=== PATIENT | female | born 1985 | race Caucasian/White ===

== ENCOUNTER 2021-02-25 13:02 | Outpatient (CLI) | payer BC, SELFPAY ==
[2021-02-25 20:07] LABS: Hematocrit 42.7 % (37.0-47.0); Hemoglobin 13.5 g/dL (12.0-15.0); Mean Corpuscular HGB Conc 31.6 g/dl (32-36); Mean Corpuscular Hemoglobin 28.7 pg (26-34); Mean Corpuscular Volume 90.9 fl (80-100); Mean Platelet Volume 10.3 fl (7.4-10.4); Platelet Count Result 376 k/mm3 (150-375); Red Cell Distribution Width 12.6 % (11.5-14.5); White Blood Count 6.6 K/mm3 (4.5-10.0)
== END 2021-02-25 13:03 | disposition home or self-care (01) ==
PROVIDERS: PCP Physician Assistant; Visit Provider Obstetrics & Gynecology
DX: N92.1 Excessive and frequent menstruation with irregular cycle (principal)
CPT/HCPCS: 36415; 84443; 85027

== ENCOUNTER 2021-04-07 00:23 | Day surgery (SDC) | payer BC, SELFPAY ==
[2021-03-31 14:16] VITALS: BMI 24.3
--- NOTE | 2021-04-04 16:21 | PM.IMHP ---
H&P: HPI History of Present Illness Date/Time: 04/04/21 16:21 35 y/o G0 with irregular frequent bleeding and severe cramping after endometrial ablation. OCP and depo provera did not help Chief Complaint: Irregular bleeding, cramping Review of Systems Review of Systems: All systems reviewed & are unremarkable except as noted in HPI and below PMFSH Surgical History Surgical History History of bilateral salpingectomy History of breast surgery 1 mass removed from right breast and 2 masses removed from left breast, benign, followed at [facility], will start mammograms at age 35 All ducts removed History of dilation and curettage History of endometrial ablation Family History Family History Other Breast cancer aunt Diabetes mellitus aunt Ovarian cancer aunt and cousin ALS (amyotrophic lateral sclerosis) uncle Mother Hypertension Hypercholesteremia Grandparent Stomach cancer Father Larynx cancer Social History Social History Smoking status: Never smoker Alcohol intake: current Alcohol use details: ONCE A MONTH Substance use: never Spiritual care concerns: No Meds Home Medications and Allergies Home Medications Medication Instructions Recorded Confirmed Type ascorbic acid (vitamin C) 500 mg 500 mg PO DAILY 07/30/20 03/31/21 History capsule,extended release multivitamin 1 tablet PO DAILY 07/30/20 03/31/21 History vitamin E 200 unit capsule 200 unit PO DAILY 07/30/20 03/31/21 History zinc 50 mg tablet 50 mg PO DAILY 03/31/21 03/31/21 History Allergies Allergy/AdvReac Type Severity Reaction Status Date / Time hydrocodone AdvReac Severe Nausea and Verified 03/31/21 14:15 Vomiting Exam Const: General: healthy appearing, no acute distress, alert and awake Resp: Auscultation: clear to auscultation bilaterally Cardio: Rate: regular rate Rhythm: regular rhythm GI: Inspection: non-distended GI Palp: Yes Soft to palpation and No Tenderness to palpation present (GI) : Bimanual exam- vagina & uterus: normal bimanual exam, uterine size normal, uterine mobility normal, non-tender and soft Bimanual Exam- Adnexa, other: normal adnexae, no masses and No adnexal tenderness Extrem: General: no pedal edema and no calf tenderness Psych: Mental Status: mental status grossly normal Assessment and Plan Assessment and plan (1) Menometrorrhagia: Code(s): N92.1 - Excessive and frequent menstruation with irregular cycle Status: Acute Assessment and Plan: She opted and signed consent for TLH after risks, benefits, complications, and alternatives discussed. She is already s/p bilateral salpingectomy. We're planning to leave ovaries in place assuming they look normal. Se did have 1 cm left ovarian cyst on recent u/S (2) Pelvic pain: Code(s): R10.2 - Pelvic and perineal pain Status: Acute
[2021-04-07] VITALS (9 sets, daily range): BP systolic 105–122; BP diastolic 48–82; PULSE 70–94; RESP 12–18; TEMP 36.5–36.7; O2SAT 98–100
--- NOTE | 2021-04-07 10:20 | WPDANESEPPF ---
Anes - Initial Pre Proc Eval Procedure: Operation Date: 04/07/21 12:00 Proposed Procedures p Total Laparoscopic Hysterectomy - Monisha Ch MD Date/Time: 04/07/21 10:20 Surgeon: Monisha Ch MD Pre Op Diagnosis: menometrrohaghia, dysmenorrhea Patient Data Age: 35 Gender: F Height: 1.73 m Weight: 72.5 kg Allergies Allergy/AdvReac Type Severity Reaction Status Date / Time hydrocodone AdvReac Severe Nausea and Verified 03/31/21 14:15 Vomiting Home Medications Medication Instructions Recorded Confirmed Type ascorbic acid (vitamin C) 500 mg 500 mg PO DAILY 07/30/20 03/31/21 History capsule,extended release multivitamin 1 tablet PO DAILY 07/30/20 03/31/21 History vitamin E 200 unit capsule 200 unit PO DAILY 07/30/20 03/31/21 History zinc 50 mg tablet 50 mg PO DAILY 03/31/21 03/31/21 History Patient hx anesthesia problems: none Family hx anesthesia problems: none Results Review: All pre-operative results and documents have been reviewed as part of the pre-operative evaluation. [facility] Surgical History Surgical History History of bilateral salpingectomy History of breast surgery 1 mass removed from right breast and 2 masses removed from left breast, benign, followed at [facility], will start mammograms at age 35 All ducts removed History of dilation and curettage History of endometrial ablation Family History Family History Other Breast cancer aunt Diabetes mellitus aunt Ovarian cancer aunt and cousin ALS (amyotrophic lateral sclerosis) uncle Mother Hypertension Hypercholesteremia Grandparent Stomach cancer Father Larynx cancer Social History Social History Smoking status: Never smoker Alcohol intake: current Alcohol use details: ONCE A MONTH Substance use: never Living arrangements: with family Spiritual care concerns: No Anes - Eval Final PreProcedure Day of Procedure 04/07/21 10:20 Patient weight: normal Heart: regular rate and rhythm Lungs: clear to auscultation Airway: Mallampati scale class II Neurological: alert and oriented Last oral intake: >/= 8 hours ASA classification: I Emergent: no Anesthetic plan: proceed Anesthesia type and monitoring: general ETT and standard monitoring Results Review: All pre-operative results and documents have been reviewed as part of the pre-operative evaluation. Informed Consent: The patient's anesthetic plan and its attendant risks and benefits were discussed with the patient/family/POA. Questions were solicited and answers provided to the satisfaction of the patient/family/POA.
[2021-04-07] MEDS: ACETAMINOPHEN 500 MG TABLET 1000 MG PO (10:30)
[2021-04-07] MEDS: LACTATED RINGERS 1,000 ML 30 ML IV CONT ×2 (10:31→16:29)
[2021-04-07] MEDS: KETOROLAC 15 MG/ML VIAL (*BKC) IV PUSH (10:31)
--- NOTE | 2021-04-07 11:47 | WPDHPUPDATE1 ---
History and Physical Update Update Date/Time: 04/07/21 11:47 History and Physical has been reviewed, including an updated exam of the patient. There are NO changes in the patient's condition. Risks, benefits, and alternatives have been discussed and questions answered. Patient agrees to proceed with procedure.
[2021-04-07] MEDS: ceFAZolin 2 GM/D5W 50 ML 2 GM/50 ML BAG IVPB (11:58)
--- NOTE | 2021-04-07 12:03 | W.PM.PROC2 ---
Procedure Note - Detailed Date of Procedure 04/07/21 Pre-op Diagnosis menometrorrhagia, dysmenorrhea Post-op Diagnosis other (menometrorrhagia, dysmenorrhea, intraoperative cystotomy) Procedure Performed [facility] Surgeon Monisha Ch MD Anesthesia general Indications Severe cramping after endometrial ablation, and irregular frequent bleeding despite multiple hormonal therapies Findings normal uterus, absent fallopian tubes, normal ovaries with 1-2 cm serous filled left ovarian cyst / follicle; normal appendix, liver, gall bladder. 3 mm cystotomy repaired laparoscopically but different 5-6 mm laceration created while tying the sutures Description of Procedure She was taken to the operating room where general anesthesia was obtained. She was prepared and draped in the normal sterile fashion in dorsal lithotomy position. Marcaine was injected infraumbilically. A 5 mm infraumbilical incision was made with a scalpel, and a 5 mm nonbladed trocar was placed with the camera in the trocar under direct visualization into the peritoneal cavity. Insufflation was begun she was placed in Trendelenburg. A 10 mm trocar was placed in the right lower quadrant under direct visualization. A 5 mm trocar was placed in the left lower quadrant under direct visualization. Inspection of the pelvis revealed the findings as noted above. The right round ligament was clamped transected with the Harmonic scalpel. The utero-ovarian ligament was then divided on the right side. The bladder flap was then created from the right side. The left he round ligament was then grasped coagulated and transected, as was the left utero-ovarian ligament. The bladder flap was created from the left side meeting the flap from the right. The bladder was pushed down further with the laparoscopic Kittner. The bladder was dissected off the uterus further and using the Harmonic scalpel and then pushed down once again with the Kittner. The left uterine artery was skeletonized, clamped, coagulated, and transected using the Harmonic scalpel with excellent hemostasis visualized. Several more bites were taken down the broad ligament to the level of the uterosacral ligament had been reached. The right uterine artery was then clamped coagulated and transected. Several more bites were taken down the broad ligament to the level of the uterosacral ligament had been reached. The uterosacral ligaments were then divided on both sides. A sponge stick was placed in the vagina and pressed against the anterior cul-de-sac. A colpotomy incision was made against the sponge stick. The vagina was then circumferentially incised hugging against the cervix. Once the uterus insert cervix were completely free of the surrounding vaginal tissue, the cervix and uterus were passed down as far as possible into the vaginal canal. Attention was then turned to the vagina. Speculum was placed in the vagina. The cervix was easily visible and grasped with a single-tooth tenaculum. Gentle traction was able to remove the uterus easily. A moist blue towel was then placed in the vagina to help hold the pneumoperitoneum. Attention was then turned back to the abdomen. The vaginal cuff was irrigated and inspected with hemostasis noted. There was a small defect anterior to the vaginal cuff that upon further inspection was obvious to be a small approximately 3 mm cystotomy. The Francois bulb was visible through that opening. The vaginal cuff was approximated using 0 Vicryl interrupted sutures. 3-0 chromic interrupted sutures were placed to close the defect in the bladder. 50 cc of methylene blue dyed saline were then placed into the Francois retrograde. There was clear leakage of blue fluid from the cystotomy site. A couple more 3-0 chromics were placed to try to repair the defect in the bladder a little bit better, but upon trying 1 of those sutures, a slightly larger defect (about 5 mm) was torn in the bladder. At that point decision was made
[2021-04-07] MEDS: METHYLENE BLUE 0.5% INJ 10 ML AMPULE 20 ML IRRIGATION (13:44)
[2021-04-07] MEDS: BUPIVACAINE/EPINEPHRINE 0.25% 50 ML VIAL INFILTRATE (14:36)
--- NOTE | 2021-04-07 14:42 | SUR.OPER ---
PATIENT TRANSFERRED TO OR 10 FOR REPAIR OF BLADDER INJURY THAT OCCURRED DURING TOTAL LAPAROSCOPIC HYSTERECTOMY WITH DR. COWART. REPORT GIVEN AT BEDSIDE TO NAVARRO GALEANO.
--- NOTE | 2021-04-07 15:13 | SUR.OPER ---
PATIENT OUT OF OR 3 AT 1505. TRANSPORTED TO OR 10 VIA STRETCHER WITH ANESTHESIA, BLEACHING SUPERVISOR, AND CASINO PORTER.
[2021-04-07] MEDS: ceFAZolin SODIUM 1 GM VIAL 2 GM IV PUSH (15:58)
--- NOTE | 2021-04-07 16:03 | SUR.OPER ---
PATIENT TO ROOM 10 15:06 VIA STRETCHER AND INTUBATED Caterina DIMAS CRNA AT HEAD OF BED. TO OR BED WITH ASSISTANCE OF 5 VIA ROLLER. ARRIVES WITH 3 GLUE SITES ON ABDOMEN PORT SITES INTACT AND DRY.
--- NOTE | 2021-04-07 16:16 | W.PM.PROC2 ---
Procedure Note - Detailed Date of Procedure 04/07/21 Pre-op Diagnosis Intraoperative bladder injury Post-op Diagnosis same Procedure Performed Robotic closure of cystotomy Cystoscopy Surgeon Sanjeev Bolivar MD Anesthesia general Indications Someone was undergoing hysterectomy. There was intraoperative bladder injury that I evaluated. She will need repair Findings 2 cm bladder injury noted. Closed in multiple layers. Ureters normal on cystoscopy Description of Procedure I was asked to come into the operating room. There was an obvious bladder laceration near the posterior wall and dome of the bladder. Her secretary book keeper admitted attempted repairing it laparoscopically. We discussed the open procedure. We opted for a robotic procedure. Before doing this I performed a cystoscopy. The laceration was seen in the posterior wall of the bladder about long-term out. It was remote from the ureteral orifices. There is no other bladder abnormalities. Both ureters were seen to excrete clear yellow urine. Her secretary book keeper finished her portion of the procedure and closed. She was then brought over to the robotic room. I anesthetized the skin 3 fingerbreadths cephalad to the umbilicus. I incised the skin. I grasped the fascia with Damion clamps. I entered the fascia sharply in a Jiang type technique. I placed Vicryl sutures for later fascial closure. I placed a midline trocar. Under direct vision I placed 2 additional trocars in the right upper quadrant and 1 the left upper quadrant. She was placed in steep Trendelenburg. The robot was docked. I examined bladder injury. Approximately 2 cm. It was on posterior wall the bladder midway up to the dome. With a Sizer in the vagina I dissected the bladder off the vagina to give me more room for the closure. I did this for several cm. I then closed the mucosal layer with a running 2 0 Vicryl suture. This resulted in a mucosal to mucosal watertight closure. I then closed a 2nd seromuscular layer with another 2-0 Vicryl suture. The bladder was filled 250 cc saline. There is no leakage of fluid from this closure. I then examined the vaginal cuff. There were some gaps in the vaginal cuff I could easily see the EEA Sizer. I decided to place an additional 3 interrupted Vicryl sutures to securely close the vaginal cuff. I cleared this with her secretary book keeper before doing it. It was a good mucosal to mucosal apposition. There were adequate bites the close the vaginal cuff. A drain was then placed in the pelvis. Trocars removed. Fascia was closed. Skin was closed with Monocryl. Surgical glue was applied. She was awakened and transferred to PACU in stable condition. She should be discharged with a Francois catheter in place. We will call to arrange a cystogram in 14 days. We will get a SASHA creatinine tomorrow morning. She will need to go home on a daily anticholinergic and daily antibiotic as long as the Francois is in place. Estimated Blood Loss 5 Drains Yes (Francois catheter) Packing No Pathology none sent Complications No immediate complications Condition stable Disposition PACU
--- NOTE | 2021-04-07 16:33 | SUR.OPER ---
OUT OF OR 1626
[2021-04-07] MEDS: fentaNYL CITRATE INJ (*CRX) 100 MCG/2 ML VIAL 25 MCG IV PUSH ×8 (16:58→17:26)
--- NOTE | 2021-04-07 17:55 | PC.NURSE ---
This patient, Sara Oro, was received from PACU via bed on 04/07/21 at 1755. Patient oriented to unit policies and routines.
[2021-04-07] MEDS: DEXTROSE 5%/LACTATED RINGERS 1,000 ML 125 ML IV CONT (18:57)
[2021-04-07] MEDS: KETOROLAC 30 MG/ML VIAL (*BKC) IV PUSH (18:59)
[2021-04-07] MEDS: ENOXAPARIN 40 MG/0.4 ML SYRINGE SUB-Q (19:51)
[2021-04-08] MEDS: MORPHINE SULFATE (*CRX) 4 MG/ML INJ IV PUSH (00:06)
[2021-04-08 00:10] VITALS: BP 118/65; PULSE 91; RESP 16; TEMP 37.6; O2SAT 100
[2021-04-08] MEDS: KETOROLAC 30 MG/ML VIAL (*BKC) IV PUSH ×2 (02:56→08:38)
[2021-04-08 03:32] VITALS: BP 112/73; PULSE 62; RESP 16; TEMP 36.6
[2021-04-08 05:44] LABS: Basophils Percent Auto 0.3 % (0.2-1.2); Hematocrit 37.1 % (37.0-47.0); Hemoglobin 12.3 g/dL (12.0-15.0); Immature Granulocyte Absolute 0.03 K/mm3 (0.00-0.031); Immature Granulocyte Percent A 0.3 % (0-0.5); Lymphocytes Absolute Auto 1.85 K/mm3 (0.9-3.2); Lymphocytes Percent Auto 17.2 % (18.3-44.2); Mean Corpuscular HGB Conc 33.2 g/dl (32-36); Mean Corpuscular Hemoglobin 29.1 pg (26-34); Mean Corpuscular Volume 87.9 fl (80-100); Mean Platelet Volume 10.3 fl (7.4-10.4); Monocytes Absolute Auto 0.9 K/mm3 (0.1-0.6); Monocytes Percent Auto 8.7 % (2.6-8.5); Neutrophils Absolute Auto 7.9 K/mm3 (1.3-6.7); Neutrophils Percent Auto 73.5 % (45.5-73.1); Platelet Count Result 353 k/mm3 (150-375); Red Blood Count 4.22 M/mm3 (4.2-5.4); Red Cell Distribution Width 12.2 % (11.5-14.5); White Blood Count 10.7 K/mm3 (4.5-10.0)
--- NOTE | 2021-04-08 08:12 | P.PNAN_ITS ---
Anes - Prog Note Post-Op Date/Time: 04/08/21 08:12 Vital Signs: Last Vital Signs Temp 97.9 F 04/08/21 03:32 Pulse 62 04/08/21 03:32 Resp 16 04/08/21 03:32 BP 112/73 04/08/21 03:32 Pulse Ox 100 04/08/21 00:10 Pain Score (VAS): 6. Pain med helps I/O: Intake & Output 04/07/21 04/08/21 04/08/21 23:59 07:59 15:59 Intake Total 400 1600 Output Total 700 1450 Balance -300 150 Laboratory Tests 04/08/21 03:56 04/08/21 04/08/21 03:56 03:56 WBC 10.7 H RBC 4.22 Hgb 12.3 Hct 37.1 MCV 87.9 MCH 29.1 MCHC 33.2 RDW 12.2 Plt Count 353 MPV 10.3 Immature Gran % (Auto) 0.3 Neut % (Auto) 73.5 H Lymph % (Auto) 17.2 L Holmes % (Auto) 8.7 H Eos % (Auto) 0.0 Baso % (Auto) 0.3 Lymph # (Auto) 1.85 Holmes # (Auto) 0.9 H Eos # (Auto) 0.0 Baso # (Auto) 0.0 Abs Immat Gran (auto) 0.03 Absolute Neuts (auto) 7.9 H Absolute Nucleated RBC 0.0 Nucleated RBC % 0.0 Sodium Pending Potassium Pending Chloride Pending Carbon Dioxide Pending Anion Gap Pending BUN Pending Creatinine Pending Estim Creat Clear Calc Pending Estimated GFR Pending Glucose Pending Calcium Pending Post-procedural complaints: none Patient Feedback: Patient satisfied with anesthetic care.
--- NOTE | 2021-04-08 08:15 | PM.GYNPNOP ---
MARKETING ADMINISTRATOR - A/P Assessment and plan (1) Bladder injury, closed: Code(s): S37.20XA - Unspecified injury of bladder, initial encounter Status: Acute Assessment and Plan: Continue Francois for around 14 days and follow up with urology. Will discharge home with antibiotic and anticholinergic while catheter in place Postoperative Procedures: Procedures Operation Date: 04/07/21 12:00 Actual Procedure Side Surgeon p Total Laparoscopic Hysterectomy Not Applicable Monisha Ch MD s Robotic Closure of Cystotomy Not Applicable Sanjeev Bolivar MD Postoperative day: 1 (s/p hysterectomy) Postoperative status: doing well Postoperative plan: routine post-op care and discharge (and follow up in office in 1 week with ob/gyn doctor and as directed by urology) Time Spent With Patient Time: Total time spent is greater than 50% in coordination of care (as documented) at patient's floor/unit and/or counseling patient: Time with patient: 15 - 25 minutes MARKETING ADMINISTRATOR- PN:Subj Post-Op Subjective Date/time seen: 04/08/21 08:15 Subjective: patient has no complaints, pain is well controlled and other (Tolerating clear liquids. No flatus. No N/V) Exam Const: General: no acute distress Resp: Auscultation: clear to auscultation bilaterally Cardio: Rate: regular rate Rhythm: regular rhythm GI: Inspection: non-distended, incision (Intact without erythema, drainage, or induration) and other (SASHA drain with scant sanguinous drainage) GI Palp: Yes abdominal tenderness (appropriate) and Yes Soft to palpation Auscultation: normal bowel sounds Extrem: General: no edema MARKETING ADMINISTRATOR - PN: Obj Data Vital Signs Vital Signs: Vital Signs - 24 hr 04/07/21 11:17 04/07/21 16:29 04/07/21 16:30 Temperature 36.7 C 36.6 C Pulse Rate 70 94 87 Respiratory Rate 18 16 13 Blood Pressure 122/82 117/48 L 122/71 Pulse Oximetry 100 100 100 04/07/21 16:45 04/07/21 17:00 04/07/21 17:15 Temperature Pulse Rate 76 71 79 Respiratory Rate 12 13 15 Blood Pressure 120/67 109/70 117/72 Pulse Oximetry 100 100 98 04/07/21 17:30 04/07/21 17:38 04/07/21 18:30 Temperature 36.5 C Pulse Rate 78 88 75 Respiratory Rate 15 18 18 Blood Pressure 111/64 105/66 116/67 Pulse Oximetry 98 98 98 04/08/21 00:10 04/08/21 03:32 Temperature 37.6 C 36.6 C Pulse Rate 91 62 Respiratory Rate 16 16 Blood Pressure 118/65 112/73 Pulse Oximetry 100 Intake/Output Intake/Output: Intake & Output 04/05/21 04/06/21 04/07/21 04/08/21 23:59 23:59 23:59 23:59 Intake Total 450 1600 Output Total 700 1450 Balance -250 150 Meds/Results Medications: Active Medications Generic Name Dose Route Start Last Admin Trade Name Freq PRN Reason Stop Dose Admin Acetaminophen/Codeine Phosphate 1 tab 04/07/21 17:43 Acetaminophen/Codeine (*Crx) 300/30 Mg Tablet PO Q4H PRN Pain Rated 4-6 Docusate Sodium 100 mg 04/07/21 17:43 04/08/21 01:39 Docusate Sodium 100 Mg Capsule PO Not Given BID LORA Enoxaparin Sodium 40 mg 04/07/21 20:00 04/07/21 19:51 Enoxaparin 40 Mg/0.4 Ml Syringe SUB-Q 40 mg HS LORA Administration Dextrose/Lactated Ringer's 1,000 mls @ 125 mls/hr 04/07/21 17:43 04/08/21 02:58 Dextrose 5%/Lactated Ringers IV CONT Infused .Q8H LORA Infusion Ibuprofen 600 mg 04/07/21 17:43 Ibuprofen 600 Mg Tablet PO Q6H PRN Cramping Ketorolac Tromethamine 30 mg 04/07/21 17:43 04/08/21 02:56 Ketorolac 30 Mg/Ml Vial (*Bkc) IV PUSH 04/12/21 17:42 30 mg Q6H PRN Administration Pain Rated 4-6 Metoclopramide HCl 10 mg 04/07/21 17:43 Metoclopramide Hcl Inj 10 Mg/2 Ml Vial IV PUSH Q6H PRN Nausea Morphine Sulfate 4 mg 04/07/21 17:43 04/08/21 00:06 Morphine Sulfate (*Crx) 4 Mg/Ml Inj IV PUSH 4 mg Q4H PRN Administration Pain Rated 7-10 Naloxone HCl 0.1 mg 04/07/21 17:43 Naloxone Hcl 0.4 Mg/Ml Vial IV PUSH Q2M PRN Respiratory rate less than 10 Ondansetron HCl 4 mg 0
[2021-04-08 08:34] LABS: Anion Gap 8 mmol/L (8-16); Blood Urea Nitrogen 7 mg/dL (7-17); Carbon Dioxide 28 mmol/L (22-30); Chloride 103 mmol/L (98-107); Estimated CRCL calculation 86 ml/min; Estimated Glomerular Filt Rate > 60; Glucose 98 mg/dL (65-110); Sodium 139 mmol/L (137-145)
[2021-04-08] MEDS: DOCUSATE SODIUM 100 MG CAPSULE PO ×2 (08:36→16:48)
[2021-04-08] MEDS: ACETAMINOPHEN/CODEINE (*CRX) 300/30 MG TABLET 1 TAB PO ×3 (08:37→16:48)
[2021-04-08 08:38] VITALS: BP 120/77; PULSE 62; PULSE 71; RESP 12; RESP 16; TEMP 36.7; O2SAT 100
[2021-04-08 10:31] LABS: Creatinine Urine 30.3 mg/dL
[2021-04-08] MEDS: NITROFURANTOIN MONOHYD MACROCR 100 MG CAP PO (12:11)
--- NOTE | 2021-04-08 14:29 | WPDUROPN2 ---
Progress Note: A&P Assessment and Plan (1) Bladder injury, closed: Code(s): S37.20XA - Unspecified injury of bladder, initial encounter Status: Acute Assessment and Plan: Patient to keep tapia in x [address] Bolivar will schedule her Cystogram to determine if bladder injury has healed, if it is normal she will proceed to our office immediately afterward to have tapia removed. She will go home with 2 weeks of Macrobid BID 100mg, #28. Ok to discharge home when urine creatinine resturns from the SASHA drain. Subjective Subjective Date/Time Seen: 04/08/21 14:29 Patient is s/p intraoperative bladder injury during hysterectomy yesterday. Dr. Bolivar did a Robotic closure of the cystotomy and cystoscopy. She is doing well, sitting up in bed, tolerating diet, activity and pain. Urine is clear in tapia. Review of Systems Cardiovascular: Cardiovascular: Denies chest pain Respiratory: Respiratory: Reports no additional respiratory complaints Gastrointestinal: Gastrointestinal: Denies abdominal pain, Denies nausea and Denies vomiting Genitourinary: Genitourinary: Denies dysuria, Denies pelvic pain, Denies flank pain, Denies urinary incontinence, Denies urinary hesitancy and Denies urinary urgency Exam Resp: Effort & Inspection: normal respiratory effort Cardio: Rate: regular rate GI: Inspection: incision (all well approximated, no drainage, edema or dehiscence. ) GI Palp: Yes Soft to palpation and No Tenderness to palpation present (GI) : General: Yes no CVA tenderness Urinary Catheter: Urinary Catheter: patent and draining and urine clear Extrem: General: no edema Objective Data Vital Signs Vital Signs: Vital Signs - 24 hr 04/07/21 16:29 04/07/21 16:30 04/07/21 16:45 Temperature 97.9 F Pulse Rate 94 87 76 Respiratory Rate 16 13 12 Blood Pressure 117/48 L 122/71 120/67 Pulse Oximetry 100 100 100 04/07/21 17:00 04/07/21 17:15 04/07/21 17:30 Temperature Pulse Rate 71 79 78 Respiratory Rate 13 15 15 Blood Pressure 109/70 117/72 111/64 Pulse Oximetry 100 98 98 04/07/21 17:38 04/07/21 18:30 04/08/21 00:10 Temperature 97.7 F 99.6 F Pulse Rate 88 75 91 Respiratory Rate 18 18 16 Blood Pressure 105/66 116/67 118/65 Pulse Oximetry 98 98 100 04/08/21 03:32 04/08/21 08:38 Temperature 97.9 F 98.0 F Pulse Rate 62 62 Respiratory Rate 16 16 Blood Pressure 112/73 120/77 Pulse Oximetry 100 Intake/Output Intake/Output: Intake & Output 04/05/21 04/06/21 04/07/21 04/08/21 23:59 23:59 23:59 23:59 Intake Total 450 2600 Output Total 700 2450 Balance -250 150 Meds/Results Medications: Active Medications Generic Name Dose Route Start Last Admin Trade Name Freq PRN Reason Stop Dose Admin Acetaminophen/Codeine Phosphate 1 tab 04/07/21 17:43 04/08/21 13:06 Acetaminophen/Codeine (*Crx) 300/30 Mg Tablet PO 1 tab Q4H PRN Administration Pain Rated 4-6 Docusate Sodium 100 mg 04/07/21 17:43 04/08/21 08:36 Docusate Sodium 100 Mg Capsule PO 100 mg BID LORA Administration Enoxaparin Sodium 40 mg 04/07/21 20:00 04/07/21 19:51 Enoxaparin 40 Mg/0.4 Ml Syringe SUB-Q 40 mg HS LORA Administration Dextrose/Lactated Ringer's 1,000 mls @ 125 mls/hr 04/07/21 17:43 04/08/21 02:58 Dextrose 5%/Lactated Ringers IV CONT Infused .Q8H LORA Infusion Ibuprofen 600 mg 04/07/21 17:43 Ibuprofen 600 Mg Tablet PO Q6H PRN Cramping Ketorolac Tromethamine 30 mg 04/07/21 17:43 04/08/21 08:38 Ketorolac 30 Mg/Ml Vial (*Bkc) IV PUSH 04/12/21 17:42 30 mg Q6H PRN Administration Pain Rated 4-6 Metoclopramide HCl 10 mg 04/07/21 17:43 Metoclopramide Hcl Inj 10 Mg/2 Ml Vial IV PUSH Q6H PRN Nausea Morphine Sulfate 4 mg 04/07/21 17:43 04/08/21 00:06 Morphine Sulfate (*Crx) 4 Mg/Ml Inj IV PUSH 4 mg Q4H PRN Administration Pain Rated 7-10 Naloxone HCl 0.1 mg 04/07/21 17:43 Naloxone Hcl 0.4 Mg/Ml Vi
[2021-04-08] MEDS: IBUPROFEN 600 MG TABLET PO (14:41)
[2021-04-08 16:53] LABS: Creatinine Urine < 3.2 mg/dL
--- NOTE | 2021-04-08 19:44 | PC.NURSE ---
[address] Jacqueline boudreaux to get D/C order. The exchange stated they can not take anything but emergent calls and we should call the office. Called the office no answer. 1417 Called Paulina the PNP, can pt be D/C'd home? She stated that the Urine Creatinine needs to be drawn from the SASHA drain. 1437 previous drawn and sent. 1637 Called Lab due to status pending. Lab stated they will have to spin the specimen and after that it should take about 20 minutes. 1655 Called Paulina MUNGUIA with results from the Urine Creatinine. She stated that her office will schedule the Cystogram in 2 weeks and contact the pt for the appointment. This was told to the pt. Called Dr. Ch about Tylenol #3 script not making it to [email or web address]. It shows that it did on our end. Dr. Ch stated that it showed that it was received on her order too. She asked me to call [facility] to check on this. 1706 [facility] about the previuos. They stated that they did finally receive the script. The pt was informed that she could pick her scripts up at her pharmacy. She V/U'd.
--- NOTE | 2021-04-08 19:58 | PC.NURSE ---
1755 Pt instructed on use of the Francois leg bag and how to change it to and from the Draining leg back for Day and night time use. She V/U'd.
== END 2021-04-08 18:32 | disposition home or self-care (01) ==
LOC: ANHSURGERY 17:49 → ANHOB2 18:22
PROVIDERS: Urology; PCP Physician Assistant; Visit Provider Obstetrics & Gynecology
PROC: 0UT9FZZ Resection of Uterus, Via Natural or Artificial Opening With Percutaneous Endoscopic Assistance (ICD-10-PCS; CPT 58570; principal; 2021-04-07 12:00)
PROC: (CPT 57425; 2021-04-07 12:00)
DX: N92.1 Excessive and frequent menstruation with irregular cycle (principal); N94.6 Dysmenorrhea, unspecified; N99.71 Accidental puncture and laceration of a genitourinary system organ or structure during a genitourinary system procedure; N80.3 Endometriosis of pelvic peritoneum; N83.202 Unspecified ovarian cyst, left side; R10.2 Pelvic and perineal pain
CPT/HCPCS: 51999; 58570; S2900; 36415; 80048; 82570; 85025; 88305; 88307; 99199; A9270; C9290; J0690; J1100; J1650; J1885; J2250; J2270; J2405; J2704; J3010; J7030; J7120; J7121; Q9968

== ENCOUNTER 2021-04-22 12:28 | Outpatient (CLI) | payer BC, SELFPAY ==
--- NOTE | ~2021-04-22 | XR_ITS ---
EXAMINATION: XR cystogram EXAM DATE: 04/22/2021 13:20 INDICATION: Hysterectomy. Laceration of bladder, for prior. Surgery 2 weeks ago. TECHNIQUE: Fluoroscopy used during XR cystogram performed by Dr. Sanjeev Bolivar MD. Radiologist was not present for the imaging or procedure. Total fluoroscopic time of 0.1 minutes. The DAP for this procedure was 4.4 mGym2. A total of 14 images sent to PACS from the exam. There is no prior st udy for comparison. FINDINGS: Bladder tolerated approximately 350 mL of contrast saline solution. There is no contrast e xtravasation or ureteral reflux. Contrast did not evacuate completely from the bladder on the post evacuation image. On that image the re is linear density extending inferiorly which from the bladder could be small amount of contrast ou tside the patient. IMPRESSION: No evidence of bladder leak. Reviewed, dictated and finalized at location A.
== END 2021-04-22 12:29 | disposition home or self-care (01) ==
PROVIDERS: PCP Physician Assistant; Visit Provider Urology
DX: S37.23XA Laceration of bladder, initial encounter (principal); X58.XXXA Exposure to other specified factors, initial encounter
CPT/HCPCS: 51600; 74430; Q9967

== ENCOUNTER 2023-03-01 14:00 | Outpatient (RCR) | payer BC, SELFPAY ==
--- NOTE | 2023-02-01 13:55 | OPREHPOC ---
Outpatient Therapy Plan of Care This is a Multidisciplinary Plan of Care that may contain components documented by all disciplines (PT, OT, and ST.) PT Problem 1 PT Problem #1 Knowledge Deficit PT Goal 1 Goal 1. Patient will perform independent HEP 2. Patient will verbalize urge suppression strategies Target Visit 5 PT Problem 2 PT Problem #2 Impaired Strength PT Goal 1 Goal 1. Improve pelvic floor strength to 3/5 to decrease urgency and incontinence Target Visit 5 PT Goal 2 Goal 2. Improve pelvic floor endurance to 10 seconds to decrease urgency and incontinence Target Visit 5 PT Problem 3 PT Problem #3 Impaired Functional ADLs PT Goal 1 Goal 1. Patient will perform normal activities with no more than 10 instances of urination a day Target Visit 5 PT Goal 2 Goal 2. Patient will work a typical day without having to avoid fluids for meetings Target Visit 5
--- NOTE | 2023-02-01 13:55 | PTOPEVAL1 ---
Assessment and note entered by Daja Ca DPT Evaluation Information Assessment Status Evaluation Subjective Information Pt reports a hysterectomy in 2020, they accidentally nicked my bladder , then had a follow up surgery to repair that. My bladder has not been the same since. Reports a lot of urgency since then. Urinates 15-20 times a day. Stops drinking past 7 pm to avoid waking at night to void but still wakes up occasionally 1 time a night. Did have urinary incontinence after the second surgery, occurs once every couple months with a cough or a sneeze but often feels like she could leak. Denies pain with urination. Can hold urine typically 10 minutes max, depending on fluid intake. Often has to stop while driving in order to find a place to void. States she has had testing done and her bladder is emptying completely. BM every day or every other. Denies pain with BM. History of pelvic pain (pain with sex, tampon, pelvic exam). Has been diagnosed with endo but has also improved since the hysterectomy . Pt reports she has never been . History of very heavy, frequent periods. Had an ablation in 2018 due to heavy bleeding but could never completely control it so went to hysterectomy. Sees breast specialist due to unexplained masses and milk production. Family history of breast cancer but has never been diagnosed herself. Reports that her urinary frequency is an inconvenience and will avoid fluids in order to do client meetings for work or to go out in the community. Patient goal: decrease urinary frequency, not have to avoid fluid to get through her activities. Usually eats 2 meals a day and does not snack. Thinks she eats a well rounded diet. Drinks 1 cup of coffee (10-12 ounces) in the morning with a little cream. Drinks water throughout the day. 1 can of soda a few times a week. Notices much more urination after drinking water. Assessment PT Clinical Summary The patient is presenting to skilled therapy with urinary urgency and frequency following a hysterectomy in 2020 and subsequent bladder surgery. She also reports a long history of pelvic pain. She presents with decreased pelvic floor muscle strength and endurance which are contributing to her urinary symptoms and need to avoid fluids/modify her daily schedule around
--- NOTE | 2023-03-01 14:41 | OPREHPOC ---
Outpatient Therapy Plan of Care This is a Multidisciplinary Plan of Care that may contain components documented by all disciplines (PT, OT, and ST.) PT Problem 1 PT Problem #1 Knowledge Deficit PT Goal 1 Goal 1. Patient will perform independent HEP 2. Patient will verbalize urge suppression strategies Target Visit 5 Progress Met PT Problem 2 PT Problem #2 Impaired Strength PT Goal 1 Goal 1. Improve pelvic floor strength to 3/5 to decrease urgency and incontinence Target Visit 5 Progress Met PT Goal 2 Goal 2. Improve pelvic floor endurance to 10 seconds to decrease urgency and incontinence Target Visit 5 Progress Not Met PT Problem 3 PT Problem #3 Impaired Functional ADLs PT Goal 1 Goal 1. Patient will perform normal activities with no more than 10 instances of urination a day Target Visit 5 Progress Met PT Goal 2 Goal 2. Patient will work a typical day without having to avoid fluids for meetings Target Visit 5 Progress Partially Met
--- NOTE | 2023-03-01 14:43 | PTOPPROG ---
Assessment and note entered by Daja Ca DPT Evaluation Information Assessment Status Progress Subjective Information Pt reports she thinks her urinary frequency has continued to improve, forgot to bring her bladder diary to show. Was able to increase back to her typical fluid amount and eat spicy foods that did not seem to affect anything. Did not have to wake to void at all over the past week. Urinating average of 8 times a day over the past week. Can hold urge to void 30-45 minutes, has been able to wait during a phone call at work when she has needed to go. States she will be driving to [place] in a few weeks and is unsure how being in the car will go with her need to void. Assessment PT Clinical Summary The patient has made excellent progress in therapy overall. She reports greatly decreased urinary frequency to 8 times a day and 0 at night over the last week and has been able to hold urge 30-45 minutes to allow for a typical work schedule. She has been able to return to drinking her typical fluid volume and eating typical diet including spicy food without increased frequency. She also demonstrates no tenderness to abdominal palpation and improved pelvic floor strength. Due to her progress, plan to follow up with patient in 1 month after traveling and will consider discharge at that time. Plan of Care Interventions Manual Therapy,Neuro Re-education,Patient/ Caregiver Education,Therapeutic Activities, Therapeutic Exercise PT Services Indicated Yes Treatment Frequency and 1 visit in 4 weeks Duration These treatments will address the objective and functional deficits as defined above. The patient will be advanced safely and appropriately in order for the patient to progress towards his/her prior level of function. Additional exercises will be introduced and as well as a comprehensive home exercise program upon discharge, if needed, ?to ensure carryover of functional gains achieved in the clinic. This treatment plan has been reviewed and agreement upon by the patient.
--- NOTE | 2023-04-26 11:21 | PTOPDC ---
Assessment and note entered by Daja Ca DPT Evaluation Information Assessment Status Discharge - Pt Not Present Subjective Information - Assessment PT Clinical Summary The patient has not returned to therapy after being out of town. Her case will be discharged. Plan of Care PT Services Indicated No
== END 2023-04-28 13:39 | disposition home or self-care (01) ==
LOC: ANHGOSHPT 14:00
PROVIDERS: PCP Physician Assistant; Visit Provider Nurse Practitioner Adult Health
DX: R35.0 Frequency of micturition (principal); R39.15 Urgency of urination
CPT/HCPCS: 97110; 97112; 97140; 97162; 97530

== ENCOUNTER 2024-06-27 10:48 | Outpatient (CLI) | payer BC, SELFPAY ==
--- NOTE | ~2024-06-27 | US_ITS ---
US pelvic complete w TV Ordering provider: Monisha Mario APRN History: . R10.2 - Pelvic and perineal pain . Comparison: None. Technique: Transabdominal and endovaginal ultrasound of the pelvis (Doppler ultrasound interrogation techniques used as needed for this exam.) FINDINGS: UTERUS: Surgically removed. CUL DE SAC: No free fluid. RIGHT OVARY: Normal in size measuring 2.7 x 2 x 2.2 cm. Normal echotexture. Doppler vascular flow pre sent. Multiple follicles are seen. LEFT OVARY: Normal in size measuring 1.7x 1.7x 2 cm. Normal echotexture. Doppler vascular flow presen t. Multiple follicles are seen. ADNEXA: Normal. No mass. IMPRESSION: Ovarian Follicles seen bilaterally. Status post hysterectomy. Otherwise, normal pelvic ultrasound. Reviewed, dictated and finalized at location A. [employer]
== END 2024-06-27 10:49 | disposition home or self-care (01) ==
LOC: MICIMG 10:49
PROVIDERS: PCP Nurse Practitioner Obstetrics & Gynecology; Visit Provider Nurse Practitioner Obstetrics & Gynecology
DX: R10.2 Pelvic and perineal pain (principal)
CPT/HCPCS: 76830; 76856